=== PATIENT | female | born 1940 | race Caucasian/White ===

== ENCOUNTER 2016-04-26 12:23 | Inpatient (IN) | payer OTHER ==
[~2016-04-26] VITALS: Ht 162.6 cm; Wt 130.6 kg
[2016-04-26 12:39] VITALS: BP 140/71; PULSE 103; RESP 18; TEMP 98.3; O2SAT 98
--- NOTE | 2016-04-26 12:44 | NUR ---
Pt placed to ER waiting room in stable condition.
--- NOTE | 2016-04-26 12:48 | NUR ---
Patient to ER bed 07 to gown for evaluation. Side rails up.
--- NOTE | 2016-04-26 12:50 | NUR ---
Dr Perez at bedside examining patient
--- NOTE | 2016-04-26 12:50 | NUR ---
Pt brought by self, A&Ox4, pt states she was told by urgent care Hgb 7.3, c/o SOB with exertion, denies bleeding or chest pain, skin pink and warm, cap refill ,3, VSS.
[2016-04-26 13:38] LABS: EOSINOPHILS # (AUTO) 0.1 K/uL (0.0-0.4); HEMOGLOBIN 7.7 g/dL (12.0-16.0); LYMPHOCYTES # (AUTO) 1.3 K/uL (1.0-5.5); MONOCYTES # (AUTO) 0.8 K/uL (0.0-1.0); MONOCYTES % (AUTO) 11.4 % (1.7-9.3)
[2016-04-26 13:40] LABS: BASOPHILS % (AUTO) 0.3 % (0.0-2.0); EOSINOPHILS % (AUTO) 0.9 % (0.0-4.0); HEMATOCRIT 25.8 % (36-48); LYMPHOCYTES % (AUTO) 19.4 % (20.5-51.5); MEAN CORPUSCULAR HEMOGLOBIN 18 pg (27-31); MEAN CORPUSCULAR HGB CONC 30 % (32-36); MEAN CORPUSCULAR VOLUME 61 fL (79.0-98.0); NEUTROPHILS # (AUTO) 4.7 K/uL (1.8-7.7); PLATELET COUNT (AUTO) 387 K/uL (130-430); RED BLOOD CELL COUNT(AUTO) 4.24 MIL/uL (4.2-6.2); RED CELL DISTRIBUTION WIDTH 18.5 % (9.0-15.0); WHITE BLOOD COUNT (AUTO) 6.9 K/uL (4.8-10.8)
[2016-04-26 13:44] LABS: ANION GAP 6 (5-15); CALCIUM 8.9 mg/dL (8.4-11.0); CHLORIDE 101 mmol/L (98-107); GLUCOSE 135 mg/dL (70-99); POTASSIUM 3.6 mmol/L (3.5-5.1); SODIUM SERUM 135 mmol/L (136-145); UREA NITROGEN, BLOOD 9 mg/dL (8-21)
[2016-04-26 13:49] LABS: ALANINE AMINOTRANSFERASE 30 U/L (12-78); ALBUMIN 3.6 g/dL (3.4-4.8); ASPARTATE AMINOTRANSFERASE 34 U/L (10-37); TOTAL BILIRUBIN 0.7 mg/dL (0.0-1.0); TOTAL PROTEIN, SERUM 7.6 g/dL (6.4-8.3)
[2016-04-26] MEDS ORDERED: GLIP-195 PO (15:26)
[2016-04-26] MEDS ORDERED: FURO40TA5 PO (15:26)
[2016-04-26] MEDS ORDERED: METF-303 PO (15:26)
[2016-04-26] MEDS ORDERED: AMLO10TA88 PO (15:26)
[2016-04-26] MEDS ORDERED: POT25TAB5 PO (15:26)
[2016-04-26] MEDS ORDERED: BENA40TA2 PO (15:26)
[2016-04-26] MEDS ORDERED: FLUT100B INH (15:26)
[2016-04-26] MEDS ORDERED: GABA-331 PO (15:26)
[2016-04-26] MEDS ORDERED: PRAV40TA PO (15:26)
--- NOTE | 2016-04-26 15:30 | NUR ---
Patient will be admitted to care of Dr Mohamud. Admitted to tele unit. Will go to room 135. Belongings list completed. Summary report printed. Report given to carmen .
[2016-04-26 15:45] VITALS: BP 134/71; PULSE 105; RESP 20; TEMP 97.4; O2SAT 95
--- NOTE | 2016-04-26 15:45 | NUR ---
Admission Note Received patient from ER with diagnosis of ANEMIA. Initial Plan of Care discussed-patient verbalized understanding. Oriented to room, call light, pain management and safety.
[2016-04-26 16:00] VITALS: BP 134/71; PULSE 100; RESP 18; O2SAT 95
--- NOTE | 2016-04-26 16:00 | NUR ---
NOTES Recieved pt in bed awake, alert and oriented. denies any pain or discomfort. feel shortness of breath at times. ivl. oriented with call light use and phone. safety precaution observed. enc. to call at all times. pt verbalize understanding.
--- NOTE | 2016-04-26 16:29 | NUR ---
GI CONSULT Spoke with exchange regarding request for consultation with Dr. Foley ([phone]) for reason: GI. Dr. Jones is currently fiction writer.
[2016-04-26] MEDS ORDERED: FLUTICASONE PROPIONATE 50 mCg/SPRAY 16 GM NS PRN (17:00)
--- NOTE | 2016-04-26 17:06 | NUR ---
md called Dr. barone called and made aware of consult. new orders received.
[2016-04-26 17:47] LABS: IRON (SERUM) 13 mcg/dL (37-145); TOTAL IRON BIND. CAPACITY 433 ug/dL (250-450)
--- NOTE | 2016-04-26 18:05 | NUR ---
NOTES EATING HER DINNER AT THIS TIME. PT HAS HISTORY OF DM BUT PER PT IS BEEN CONTROLLED.
--- NOTE | 2016-04-26 18:07 | NUR ---
BLOOD TRANSFUSION BLOOD NOT READY AT THIS TIME. INFORMED LAB TO CALL IF BLOOD IS READY.
[2016-04-26] MEDS: metFORMIN HCL 500 MG TABLET PO SCH (18:35)
--- NOTE | 2016-04-26 20:00 | NUR ---
Initial note: Patient awake/alert. Denies distress at this time. Respirations unlabored, regular and clear bilat. to auscultation. Patient is aware of transfusion to take place. Patient voiding without difficulty. Was up to bathroom with assist. Tolerated ambulation well. Gait is steady. Back to bed. Side rails up with bed in low position.
--- NOTE | 2016-04-26 20:07 | NUR ---
PAGED DR KRUEGER S/W PRINCE, "DR YOUNG IS O/C" [phone]
[2016-04-26 20:20] VITALS: BP 128/67; PULSE 100; RESP 18; TEMP 98; O2SAT 95
[2016-04-26] MEDS ORDERED: GABAPENTIN 300 MG CAPSULE PO SCH (21:00)
--- NOTE | 2016-04-26 21:25 | NUR ---
PAGED DR YOUNG [phone] LAURI MORRISON
[2016-04-26] MEDS ORDERED: GABA-531 PO (21:35)
--- NOTE | 2016-04-26 21:40 | NUR ---
CALLED BACK: TALKED WITH DR HECTOR MCKEON , INFORMED MD THAT PT TAKES GABAPENTINE 300MG PO BID , BUT CURRENT ORDER IS 600 MG PO BID , ORDERED TO CHANGE THE ORDER ; COURTNEY RUFFIN CHANGED BENEZEPRIL 40 MG TO BID FOR ONCE DAILY ;INFORMED THAT PT TAKES HER NORVASC AND GLIPIZIDE AT NIGHT , STATED OK TO GIVE NORVASC AT NIGHT BUT SHE ASKED GLIPIZIDE TO GIVE IN THE MORNING
[2016-04-26] MEDS ORDERED: amLODIPine BESYLATE 10 MG TABLET PO ONE (21:45)
[2016-04-26] MEDS ORDERED: BENAZEPRIL HCL 20 MG TABLET (LOTENSIN) PO ONE (21:45)
[2016-04-26] MEDS ORDERED: GABAPENTIN 100 MG CAPSULE PO ONE (21:45)
--- NOTE | 2016-04-26 22:10 | NUR ---
BT INITIATION: Consent signed signed by pt . Blood has been type and crossmatched. Blood sent from blood bank. Information on unit of blood checked against patient wristband at bedside by two nurses. All information matches. Patient informed of potential complications associated with blood transfusion. Informed of possible transfusion reaction symptoms. Aware of need to notify nurse at once of itching, shortness of breath, flushing, feeling of impending doom, or other symptoms not previously present. Vital signs taken within 5 minutes prior to initiation of transfusion. RN will remain with patient for first 15 minutes of transfusion at which time vital signs will be re-assessed.
--- NOTE | 2016-04-26 22:25 | NUR ---
15 min after BT initiation: Pt is comfortable, denied any discomfort ; no s/s of any allergy and transfusion reaction noted ; vitals are stable ; will continue to monitor.
[2016-04-26 23:21] VITALS: BP 132/67; PULSE 104; RESP 18; TEMP 98.2; O2SAT 94
[2016-04-27] VITALS (7 sets, daily range): BP systolic 109–127; BP diastolic 55–71; PULSE 90–97; RESP 16–20; TEMP 97.2–98.6; O2SAT 92–96
--- NOTE | 2016-04-27 01:10 | NUR ---
1st unit of blood transfusion over: 1st unit of blood transfusion is over , pt is comfortable ; not in any acute distress; no reactions noted .
--- NOTE | 2016-04-27 01:25 | NUR ---
2nd unit of blood started at this time. Patient tolerating infusion without distrss. VS stable. Respirations are regular and unlabored. Call light within reach with bed in low position.
--- NOTE | 2016-04-27 02:30 | NUR ---
Rounds: Patient resting with blood infusing without difficulty. No s/s of reaction. Has been getting up to BSC with assist. to void. Voiding without difficulty. Call light within reach with bed in low position.
[2016-04-27] MEDS ORDERED: COMMUNICATION ORDER XX ONE (04:15)
--- NOTE | 2016-04-27 04:30 | NUR ---
2nd unit of blood completed. Patient afebrile B/P 115/63. No s/s of respiratory difficulty or any other distress. Side rails up with bed in low position and call light within reach. Addendum: 04/27/16 at 0611 by Linda Hurtado RN 2nd unit completed at 04:45am without s/s of reaction.
--- NOTE | 2016-04-27 05:10 | NUR ---
RN ROUNDS: PT IS COMFORTABLE ;ASSISTED PT TO THE RESTROOM ; PT VOIDED WELL ; ASSISTED PT BACK TO BED ; NOT IN ANY ACUTE DISTRESS;WILL CONTINUE TO MONITOR.
--- NOTE | 2016-04-27 06:39 | NUR ---
RN ROUNDS: PT IS SLEEPING NOT IN ANY ACUTE DISTRESS; WILL CONTINUE TO MONITOR Addendum: 04/27/16 at 0643 by Soledad Chavis RN BS 121, NO INSULIN COVERAGE NEEDED
--- NOTE | 2016-04-27 07:20 | NUR ---
Closing Note: Awake and alert at this time. Report given to the oncoming RN at bedside. No significant changes in the condition.
--- NOTE | 2016-04-27 07:25 | NUR ---
RN NOTES: patient is aaox 4. afebrile. vss stable. obese patient. on room air. no sob nor distress noted. has saline lock rt ac #20. dry/intact. lungs bilaterally clear. abdomen soft and non distended. bed in low position. call lights within reach. safety measures maintained. informed patient to call for assistance. will continue to monitor patients status. on cardiac exercise physiologist.
[2016-04-27 07:28] LABS: BASOPHILS # (AUTO) 0.3 K/uL (0.0-0.2); EOSINOPHILS # (AUTO) 0.2 K/uL (0.0-0.4); EOSINOPHILS % (AUTO) 2.1 % (0.0-4.0); HEMATOCRIT 29.8 % (36-48); HEMOGLOBIN 9.3 g/dL (12.0-16.0); LYMPHOCYTES # (AUTO) 1.6 K/uL (1.0-5.5); LYMPHOCYTES % (AUTO) 20.2 % (20.5-51.5); MEAN CORPUSCULAR HEMOGLOBIN 20 pg (27-31); MEAN CORPUSCULAR HGB CONC 31 % (32-36); MEAN CORPUSCULAR VOLUME 64 fL (79.0-98.0); MONOCYTES # (AUTO) 0.9 K/uL (0.0-1.0); MONOCYTES % (AUTO) 11.7 % (1.7-9.3); NEUTROPHILS # (AUTO) 4.8 K/uL (1.8-7.7); PLATELET COUNT (AUTO) 329 K/uL (130-430); RED BLOOD CELL COUNT(AUTO) 4.66 MIL/uL (4.2-6.2); RED CELL DISTRIBUTION WIDTH 21.5 % (9.0-15.0); WHITE BLOOD COUNT (AUTO) 7.8 K/uL (4.8-10.8)
[2016-04-27 07:38] LABS: PROTHROMBIN TIME 10.9 SECS (9.5-12.5)
[2016-04-27 07:59] LABS: ANION GAP 7 (5-15); CHLORIDE 102 mmol/L (98-107); GLUCOSE 115 mg/dL (70-99); POTASSIUM 4.9 mmol/L (3.5-5.1); SODIUM SERUM 134 mmol/L (136-145)
[2016-04-27 08:00] LABS: ALANINE AMINOTRANSFERASE 29 U/L (12-78); ALBUMIN 3.4 g/dL (3.4-4.8); ASPARTATE AMINOTRANSFERASE 55 U/L (10-37); CALCIUM 8.9 mg/dL (8.4-11.0); CREATININE 0.44 mg/dL (0.55-1.30); TOTAL BILIRUBIN 0.8 mg/dL (0.0-1.0); UREA NITROGEN, BLOOD 11 mg/dL (8-21)
[2016-04-27] MEDS ORDERED: GABAPENTIN 300 MG CAPSULE PO SCH (08:30)
[2016-04-27] MEDS ORDERED: FLUTICASONE FUROATE 100 MCG BLST.W.DEV INH SCH (09:00)
[2016-04-27] MEDS ORDERED: BENAZEPRIL HCL 20 MG TABLET (LOTENSIN) PO SCH (09:00)
[2016-04-27] MEDS ORDERED: amLODIPine BESYLATE 10 MG TABLET PO SCH (09:00)
[2016-04-27] MEDS ORDERED: PRAVASTATIN SODIUM 20 MG TABLET (PRAVACHOL) PO SCH (09:00)
[2016-04-27] MEDS: PANTOPRAZOLE SODIUM 40 MG/VIAL (PROTONIX) IVP SCH (09:08)
[2016-04-27] MEDS: GABAPENTIN 300 MG CAPSULE PO SCH ×2 (09:11→21:15)
[2016-04-27] MEDS: glipiZIDE XL 5 MG TAB ( GLUCOTROL XL) PO SCH (09:12)
[2016-04-27] MEDS: FUROSEMIDE 40 MG TABLET PO SCH (09:12)
[2016-04-27] MEDS: ATORVASTATIN 10 MG TABLET PO SCH (09:12)
[2016-04-27] MEDS: POTASSIUM CHLORIDE 10 MEQ TAB.PRT.SR PO SCH (09:13)
[2016-04-27] MEDS: BENAZEPRIL HCL 20 MG TABLET (LOTENSIN) PO SCH ×2 (09:14→21:15)
[2016-04-27] MEDS: metFORMIN HCL 500 MG TABLET PO SCH ×2 (09:17→16:47)
--- NOTE | 2016-04-27 09:20 | NUR ---
Protonix given IVP along with PO medications. Patient alert and oriented, sitting in bed. Slippers applied.
--- NOTE | 2016-04-27 09:22 | NUR ---
sitting on the bed. watching tv. stable. no sob nor distress noted.
--- NOTE | 2016-04-27 11:00 | NUR ---
patient is on the room stable no sob nor distress noted.
[2016-04-27] MEDS: INSULIN REGULAR, HUMAN 100 UNITS/ML, 10 ML VIAL (novoLIN R) SUBCUT PRN ×2 (11:28→16:48)
--- NOTE | 2016-04-27 11:30 | NUR ---
latest bs is 194mg/dl. coverage given at this time.
--- NOTE | 2016-04-27 12:00 | NUR ---
CALLED GI , DR HIRSCH, RE: REQUEST OF THE FAMILY AND PT TO EXPLAIN THE PROCEDURES EGD AND COLONOSCOPY BEFORE SIGNING THE CONSENT. SPOKE TO STEVEN
--- NOTE | 2016-04-27 12:20 | NUR ---
Dr Cai called and spoke to the patient regarding the procedure for egd and colonoscopy in am.
--- NOTE | 2016-04-27 13:08 | NUR ---
had voided in the bathroom. and said will read the consent and talk to the son for the procedure.
--- NOTE | 2016-04-27 14:35 | NUR ---
asleep at this time. awaiting for the son to come.
--- NOTE | 2016-04-27 15:40 | NUR ---
assists to the bathroom. had voided about 700cc clear yellow orange urine. no bowel movement yet.
--- NOTE | 2016-04-27 16:50 | NUR ---
patient son came and both agreed to have colonoscopy and EGD procedure in am.
[2016-04-27] MEDS ORDERED: BISACODYL 5 MG TABLET.DR (DULCOLAX) PO ONE (17:00)
--- NOTE | 2016-04-27 17:04 | NUR ---
consent signed for EGD and Colonoscopy in am.
--- NOTE | 2016-04-27 17:05 | NUR ---
dulcolax tablet 10 mg po given at this time. assisted to the bathroom.
--- NOTE | 2016-04-27 17:41 | NUR ---
clear liquid tray for dinner is eating at this time. assisted to the bedside commode.
--- NOTE | 2016-04-27 17:41 | NUR ---
latest bs is 86mg/dl. no coverage given. apple juice and jello given.
[2016-04-27] MEDS ORDERED: GOLYTELY / COLYTE SOLUTION 4 LITERS PO ONE (18:00)
--- NOTE | 2016-04-27 18:00 | NUR ---
start drinking the golytely po. patient is on the bedside commode.
--- NOTE | 2016-04-27 18:31 | NUR ---
closing notes: patient is on the bedside commode. no sob nor distress noted. all needs met at this time. will continue to monitor patients status. bed in low position. still iv access in placed. call lights within reach. safety measures maintained.
--- NOTE | 2016-04-27 19:50 | NUR ---
Initial Notes Patient alert and oriented, able to make needs known. Patient denies pain at this time. No SOB noted, on room air. Denies nausea/vomiting at this time. IV site patent, flushes well. Patient scheduled for colonoscopy in the morning, drinking golytely very well, tolerating it well. No s/s of hypo/hyperglycemia. Goal of pain management, GI stability and safety this shift. Call light within reach. Will continue to monitor.
[2016-04-27] MEDS: amLODIPine BESYLATE 10 MG TABLET PO SCH (21:15)
--- NOTE | 2016-04-27 22:12 | NUR ---
Hourly Rounding patient awake alert out of bed to BSC , Golitely po , to be NPO @ midnight assist with Mobility as needed call robles with patient / .
--- NOTE | 2016-04-28 00:05 | NUR ---
Notes Patient sleeping at this time. No s/s of pain or discomfort noted. No SOB noted. IV site patent, flushes well. Call light within reach. Will continue to monitor.
--- NOTE | 2016-04-28 02:20 | NUR ---
Notes Patient sleeping at this time. No s/s of pain or discomfort noted. No SOB noted. Call light within reach. Will continue to monitor.
[2016-04-28 04:32] VITALS: BP 119/64; PULSE 95; RESP 20; TEMP 97.8; O2SAT 98
--- NOTE | 2016-04-28 05:45 | NUR ---
Tap Water enema implemented / administer over BSC , this hour with clear transparent stool return , patient awake alert & tolerated procedure / .
--- NOTE | 2016-04-28 05:47 | NUR ---
Patient remains NPO this hour for AM procedure awake alert & aware / .
--- NOTE | 2016-04-28 06:24 | NUR ---
Closing Notes Patient denies pain at this time. No SOB noted, on room air. Denies nausea/vomiting at this time. IV site patent, flushes well. No s/s of hypo/hyperglycemia, latest blood sugar 125. Goal of pain management, GI stability and safety met. Call light within reach. Will continue to monitor.
[2016-04-28 06:35] LABS: ANION GAP 8 (5-15); CALCIUM 8.7 mg/dL (8.4-11.0); CHLORIDE 101 mmol/L (98-107); CREATININE 0.64 mg/dL (0.55-1.30); GLUCOSE 112 mg/dL (70-99); POTASSIUM 3.9 mmol/L (3.5-5.1); SODIUM SERUM 137 mmol/L (136-145); UREA NITROGEN, BLOOD 9 mg/dL (8-21)
[2016-04-28 06:47] LABS: PROTHROMBIN TIME 10.8 SECS (9.5-12.5)
[2016-04-28 07:05] LABS: BASOPHILS % (AUTO) 0.2 % (0.0-2.0); EOSINOPHILS # (AUTO) 0.3 K/uL (0.0-0.4); EOSINOPHILS % (AUTO) 2.8 % (0.0-4.0); HEMOGLOBIN 9.3 g/dL (12.0-16.0); LYMPHOCYTES # (AUTO) 1.8 K/uL (1.0-5.5); MEAN CORPUSCULAR HEMOGLOBIN 20 pg (27-31); MEAN CORPUSCULAR HGB CONC 31 % (32-36); MEAN CORPUSCULAR VOLUME 65 fL (79.0-98.0); MONOCYTES # (AUTO) 0.9 K/uL (0.0-1.0); MONOCYTES % (AUTO) 9.3 % (1.7-9.3); NEUTROPHILS # (AUTO) 6.2 K/uL (1.8-7.7); NEUTROPHILS % (AUTO) 68.7 % (40.0-70.0); PLATELET COUNT (AUTO) 330 K/uL (130-430); RED BLOOD CELL COUNT(AUTO) 4.61 MIL/uL (4.2-6.2); RED CELL DISTRIBUTION WIDTH 21.5 % (9.0-15.0); WHITE BLOOD COUNT (AUTO) 9.2 K/uL (4.8-10.8)
--- NOTE | 2016-04-28 07:25 | NUR ---
NRSG: AWAKE,ALERT AND ORIENTED X 4. RESPIRATION EVEN AND UNLABORED. LUNGS CLEAR BILATERAL . ABDOMEN OBESE SOFT WITH BOWEL SOUNDS X 4 QUADRANTS. RADIAL AND PEDAL PULSE PALPABLE. NO EDEMA. HAD OLD SCAB ON THE ARMS, BACK AND HAD BRUISES ON BOTH LOWER EXTREMITIES. NO C/O OF SOB, NO PAIN AND NO BLEEDING. PATIENTC/O" LEGAL DEPARTMENT MANAGER CLEANED ME UP CLEARLY FOR MY PROCEDURES TODAY". ON NPO. SALINE LOCK ON THE RIGHT ANTECUBITAL FLUSHES WELL . CALL LIGHT WITHIN REACH. AND USE BSC AND INSTRUCTED TO CALL IF NEEDS HELP AND UNDERSTOOD.
[2016-04-28 08:00] VITALS: BP 133/65; PULSE 92; RESP 20; TEMP 96.9; O2SAT 95
[2016-04-28] MEDS: metFORMIN HCL 500 MG TABLET PO SCH ×2 (08:00→18:19)
[2016-04-28] MEDS: PANTOPRAZOLE SODIUM 40 MG/VIAL (PROTONIX) IVP SCH (08:26)
--- NOTE | 2016-04-28 08:37 | NUR ---
Patient given IV Protonix. AOx4. Safety and fall precautions in place, call light within reach, will continue to monitor.
[2016-04-28] MEDS: GABAPENTIN 300 MG CAPSULE PO SCH ×2 (09:00→21:07)
[2016-04-28] MEDS: POTASSIUM CHLORIDE 10 MEQ TAB.PRT.SR PO SCH (09:00)
[2016-04-28] MEDS: ATORVASTATIN 10 MG TABLET PO SCH (09:00)
[2016-04-28] MEDS: glipiZIDE XL 5 MG TAB ( GLUCOTROL XL) PO SCH (09:00)
[2016-04-28] MEDS: FUROSEMIDE 40 MG TABLET PO SCH (09:00)
[2016-04-28] MEDS: BENAZEPRIL HCL 20 MG TABLET (LOTENSIN) PO SCH ×2 (09:00→21:06)
--- NOTE | 2016-04-28 09:07 | NUR ---
Nutrition Update Tay Scale 18 noted. Pt admitted for anemia, SOB. Diet: NPO BMI: 49.6 kg/m2 RD to follow per nutrition care standards.
--- NOTE | 2016-04-28 09:30 | NUR ---
: DR. BURROUGHS WAS ASKING THE TIME THE PROCEDURES TO B DONE AND GI WAS CALLED BY LOUIS (NATURAL SCIENCES PROFESSOR) AND APPROXIMATELY 1300 AND PATIENT UPDATED.
[2016-04-28 11:36] VITALS: BP 128/62; PULSE 98; RESP 16; TEMP 97.8; O2SAT 94
--- NOTE | 2016-04-28 11:40 | NUR ---
BS: BLOOD SUGAR 116. NO COVERAGE.
--- NOTE | 2016-04-28 12:00 | NUR ---
ACTIVITY: REMAINS NPO, NO PAIN . WILL CALL GI LAB TO F/U.
--- NOTE | 2016-04-28 13:01 | NUR ---
CLARIFICATION OF TIME: CALLED TO GI DEPT. REGARDING THE SCHEDULE OF THE PROCEDURES AND SPOKE TO ADAMA AND SAID THAT DR. HIRSCH WILL DO THE PROCEDURES AT 1400 AND PATIENT UPDATED.
[2016-04-28] MEDS ORDERED: SIMETHICONE 40 MG/0.6 ML ML ONE (13:32)
[2016-04-28] MEDS: MIDAZOLAM HCL 5 MG/5 ML VIAL ONE ×3 (13:46→13:51)
[2016-04-28] MEDS: fentaNYL CITRATE/PF 100 MCG/2 ML AMP ONE ×3 (13:46→13:55)
[2016-04-28 14:21] VITALS: Ht 162.6 cm; Wt 130.6 kg
--- NOTE | 2016-04-28 14:45 | NUR ---
ROUNDS: DR. HIRSCH HAD AN ORDER OF SBFT R/O ANEMIA FOR TOMORROW.
--- NOTE | 2016-04-28 15:00 | NUR ---
GI LAB.: GI LAB GAVE REPORT REGARDING PROCEDURES DONE.
[2016-04-28 15:30] VITALS: BP 135/69; PULSE 100; RESP 18; TEMP 97.8; O2SAT 94
--- NOTE | 2016-04-28 15:30 | NUR ---
POST TEST: RECEIVED FROM GI STAFF, AWAKE,ALERT AND ORIENTED X 4 BUT STILL SLEEPY, V/S TAKEN . KEPT COMFORTABLE ON BED. HAD NEW IV SITE THAT WAS PLACED BY GI ON THE RIGHT FOREARM GAUGE 22 INTACT AND INPLACED. KEPT COMFORTABLE ON BED. HOB 45 DEGREES AND CALL LIGHT WITHIN REACH.
[2016-04-28 16:12] VITALS: BP 123/65; PULSE 99; RESP 16; TEMP 98.3; O2SAT 94
--- NOTE | 2016-04-28 17:29 | NUR ---
ACTIVITY: RESTING ON BED AND UPDATED REGARDING IN FULL LIQUIDS.
--- NOTE | 2016-04-28 18:28 | NUR ---
closing: SON AT THE BEDSIDE, PATIENT EATING DINNER ,AWAKE,ALERT AND ORIENTED. NO C/O OF PAIN. IV SITE ON THE RIGHT FOREARM #22, NO S/S OF INFILTRATION. REMINDED TO HAVE ANOTHER TEST TO BE DONE TOMORROW FOR SMALL BOWEL FOLLOW THROUGH. CALL LIGHT WITHIN REACH.
--- NOTE | 2016-04-28 19:55 | NUR ---
Initial Notes Patient alert and oriented, able to make needs known. Patient denies pain at this time. No SOB noted, on room air. Denies nausea/vomiting at this time. IV site patent, flushes well. No s/s of hypo/hyperglycemia. Goal of pain management, GI stability and safety this shift. Call light within reach. Will continue to monitor.
[2016-04-28 20:59] VITALS: BP 129/70; PULSE 101; RESP 18; TEMP 96.7; O2SAT 96
[2016-04-28] MEDS: amLODIPine BESYLATE 10 MG TABLET PO SCH (21:07)
[2016-04-28] MEDS: INSULIN REGULAR, HUMAN 100 UNITS/ML, 10 ML VIAL (novoLIN R) SUBCUT PRN (21:12)
--- NOTE | 2016-04-28 22:00 | NUR ---
Notes Patient denies pain at this time. No SOB noted. IV site patent, flushes well. Call light within reach. Will continue to monitor.
[2016-04-29 00:36] VITALS: BP 127/67; PULSE 96; RESP 18; TEMP 96.7; O2SAT 94
--- NOTE | 2016-04-29 02:38 | NUR ---
Notes Patient denies pain at this time. No SOB noted. IV site patent, flushes well. Call light within reach. Will continue to monitor.
[2016-04-29 04:40] VITALS: BP 115/66; PULSE 108; RESP 18; TEMP 96.7; O2SAT 95
[2016-04-29 06:06] LABS: FOLATE (FOLIC ACID) 8.3 ng/mL (>3.0)
--- NOTE | 2016-04-29 06:25 | NUR ---
Closing Notes Patient denies pain at this time. No SOB noted, on room air. Denies nausea/vomiting at this time. IV site patent, flushes well. No s/s of hypo/hyperglycemia, latest blood sugar 111. Goal of pain management, GI stability and safety met. Call light within reach. Will continue to monitor.
[2016-04-29] MEDS ORDERED: PRO40 PO (09:36)
--- NOTE | 2016-04-29 09:45 | NUR ---
Initial Notes Patient was transferred back from small bowel follow through. no acute distress noted. A/O x4. Respirations even and unlabored. IV access patent. No signs of active bleeding noted. Patient able to ambulate independently from wheelchair to bed. Use of call light reviewed with patient, acknowledged understanding.
[2016-04-29] MEDS: PANTOPRAZOLE SODIUM 40 MG/VIAL (PROTONIX) IVP SCH (09:53)
[2016-04-29] MEDS: ATORVASTATIN 10 MG TABLET PO SCH (10:09)
[2016-04-29] MEDS: POTASSIUM CHLORIDE 10 MEQ TAB.PRT.SR PO SCH (10:14)
[2016-04-29] MEDS: FUROSEMIDE 40 MG TABLET PO SCH (10:14)
[2016-04-29] MEDS: metFORMIN HCL 500 MG TABLET PO SCH ×2 (10:16→17:30)
[2016-04-29] MEDS: glipiZIDE XL 5 MG TAB ( GLUCOTROL XL) PO SCH (10:17)
[2016-04-29] MEDS: BENAZEPRIL HCL 20 MG TABLET (LOTENSIN) PO SCH (10:21)
[2016-04-29] MEDS: GABAPENTIN 300 MG CAPSULE PO SCH (10:21)
[2016-04-29 10:25] VITALS: BP 138/71; PULSE 103; RESP 18; TEMP 97.9; O2SAT 96
[2016-04-29 11:55] LABS: BASOPHILS % (AUTO) 0.3 % (0.0-2.0); EOSINOPHILS # (AUTO) 0.2 K/uL (0.0-0.4); EOSINOPHILS % (AUTO) 1.9 % (0.0-4.0); HEMATOCRIT 29.1 % (36-48); HEMOGLOBIN 9.4 g/dL (12.0-16.0); LYMPHOCYTES # (AUTO) 1.3 K/uL (1.0-5.5); LYMPHOCYTES % (AUTO) 10.5 % (20.5-51.5); MEAN CORPUSCULAR HEMOGLOBIN 20 pg (27-31); MEAN CORPUSCULAR HGB CONC 32 % (32-36); MEAN CORPUSCULAR VOLUME 63 fL (79.0-98.0); MONOCYTES # (AUTO) 0.5 K/uL (0.0-1.0); NEUTROPHILS # (AUTO) 10.3 K/uL (1.8-7.7); NEUTROPHILS % (AUTO) 83.3 % (40.0-70.0); PLATELET COUNT (AUTO) 321 K/uL (130-430); RED CELL DISTRIBUTION WIDTH 21.9 % (9.0-15.0); WHITE BLOOD COUNT (AUTO) 12.3 K/uL (4.8-10.8)
[2016-04-29 12:00] VITALS: BP 122/58; PULSE 107; RESP 18; TEMP 99.2; O2SAT 96
[2016-04-29] MEDS: INSULIN REGULAR, HUMAN 100 UNITS/ML, 10 ML VIAL (novoLIN R) SUBCUT PRN (12:05)
--- NOTE | 2016-04-29 12:15 | NUR ---
Notes Blood glucose 220, Insulin administered per MD orders. Lunch tray provided.
--- NOTE | 2016-04-29 14:52 | NUR ---
Notes Dr. Jones has seen patient and reviewed completed tests. Patient stated she will be making a follow-up appointment to be seen in 6-8 weeks once she gets home. Patient denies having questions at this time.
[2016-04-29 16:00] VITALS: BP 129/63; PULSE 104; RESP 18; TEMP 99.6; O2SAT 97
--- NOTE | 2016-04-29 17:00 | NUR ---
Notes Accucheck done, no insulin coverage required per sliding scale.
[2016-04-29 17:53] VITALS: BP 129/63; PULSE 104; RESP 18; TEMP 99.6; O2SAT 97
--- NOTE | 2016-04-29 18:45 | NUR ---
D/C Patient Patient given medication reconciliation form and D/C instructions. Exit Care provided. Patient verbalized understanding. MD discussed with patient the results and treatment provided. Ambulatory with steady gait for discharge to home. Patient in stable condition, ID band removed. IV catheter removed, intact and dressing applied, no active bleeding. Patient educated on pain management and follow-up care. All belongings sent with patient.
--- NOTE | 2016-05-08 15:33 | NUR ---
Discharge Follow Up Phone Calls: Light Industrial Supervisor called pt ([phone]) 05/01/16, 05/05/16, 05/08/16, oncology social worker was unable to leave a voice mail for patient. Light Industrial Supervisor will remain available for the pt to call back, but no further follow up calls will be made at this time.
== END 2016-04-29 18:44 | disposition home or self-care (01) | DRG 378 ==
LOC: SED 12:23 → STU 14:45
PROVIDERS: ADMIT Internal Medicine; ATTEND Internal Medicine
PROC: 30233N1 Transfusion of Nonautologous Red Blood Cells into Peripheral Vein, Percutaneous Approach (ICD-10-PCS; 2016-04-26)
PROC: 0DB58ZX Excision of Esophagus, Via Natural or Artificial Opening Endoscopic, Diagnostic (ICD-10-PCS; 2016-04-28)
PROC: 0DBK8ZZ Excision of Ascending Colon, Via Natural or Artificial Opening Endoscopic (ICD-10-PCS; 2016-04-28)
PROC: 0DBN8ZZ Excision of Sigmoid Colon, Via Natural or Artificial Opening Endoscopic (ICD-10-PCS; 2016-04-28)
PROC: 0DBP8ZZ Excision of Rectum, Via Natural or Artificial Opening Endoscopic (ICD-10-PCS; 2016-04-28)
PROC: 0DBH8ZZ Excision of Cecum, Via Natural or Artificial Opening Endoscopic (ICD-10-PCS; 2016-04-28)
PROC: 0DB98ZX Excision of Duodenum, Via Natural or Artificial Opening Endoscopic, Diagnostic (ICD-10-PCS; principal; 2016-04-28 14:00)
PROC: 0DB68ZX Excision of Stomach, Via Natural or Artificial Opening Endoscopic, Diagnostic (ICD-10-PCS; 2016-04-28 14:00)
DX: K92.2 Gastrointestinal hemorrhage, unspecified (principal); Z68.42 Body mass index [BMI] 45.0-49.9, adult; D50.9 Iron deficiency anemia, unspecified; I10 Essential (primary) hypertension; E78.00 Pure hypercholesterolemia, unspecified; E11.9 Type 2 diabetes mellitus without complications; E66.01 Morbid (severe) obesity due to excess calories; D12.5 Benign neoplasm of sigmoid colon; D12.0 Benign neoplasm of cecum; D12.2 Benign neoplasm of ascending colon; K22.2 Esophageal obstruction; K29.70 Gastritis, unspecified, without bleeding; K57.90 Diverticulosis of intestine, part unspecified, without perforation or abscess without bleeding; K62.1 Rectal polyp; Z79.84 Long term (current) use of oral hypoglycemic drugs; Z79.899 Other long term (current) drug therapy; Z86.010 Personal history of colon polyps; Z90.49 Acquired absence of other specified parts of digestive tract
CPT/HCPCS: 36415; 43239; 45385; 71010; 74250-TC; 80048; 80053; 82272; 82607; 82728; 82746; 82962; 83540-TC; 83550-TC; 83605; 83880; 85025; 85610-TC; 85730-TC; 86886; 86900; 86901; 86920; 87040-TC; 87081; 88305; 88312; 88313; 99291; C9113; J1815; J2250; J3010; J7030; J7050; P9021

== ENCOUNTER 2020-11-09 16:11 | Emergency (ER) | payer OTHER ==
[~2020-11-09] VITALS: Ht 162.6 cm; Wt 73.9 kg
[~2020-11-09 16:11] MED LIST: AMLO10TA88 PO; BENA40TA8 PO; FLUT100B INH; FURO40TA5 PO; GABA-531 PO; GLIP5TAB26 PO; METF-379 PO; POT25TAB5 PO; PRAV40TA PO; PRO40 PO
[2020-11-09 16:15] VITALS: BP_SYST 145
[2020-11-09 17:45] VITALS: BP_SYST 145
== END 2020-11-09 17:40 | disposition left against medical advice (07) ==
LOC: SED 16:11
DX: H54.40 Blindness, one eye, unspecified eye (principal); I10 Essential (primary) hypertension; E11.9 Type 2 diabetes mellitus without complications; Z79.899 Other long term (current) drug therapy
CPT/HCPCS: 99281